=== PATIENT | female | born 1960 | race American Indian/Alaskan Native ===

== ENCOUNTER 2017-12-29 17:09 | Emergency (ER) | payer BC ==
[2017-12-29 18:06] LABS: Bacteria,Urine 1+ /HPF (Negative); Bilirubin,Urine NEG (Negative); Blood,Urine SM (Negative); Color,Urine Yellow (Yellow); Mucus,Urine FEW /HPF; Protein,Urine <15 mg/dL mg/dL (Negative); Urobilinogen,Urine < 2.0 mg/dL (<2.0)
[2017-12-29 18:11] LABS: Basophils # (Auto) 0.1 K/mm3 (0.0-0.1); Basophils % (Auto) 1.1 % (0.0-1.8); Eosinophils # (Auto) 0.5 K/mm3 (0.0-0.4); Eosinophils % (Auto) 10.3 % (0.0-4.3); Hemoglobin 13.4 gm/dl (10.1-14.3); Lymphocytes # (Auto) 2.1 K/mm3 (1.2-5.4); Lymphocytes % (Auto) 41.6 % (13.4-35.0); Mean Corpuscular HGB Conc 32 % (30-34); Mean Corpuscular Hemoglobin 31 pg (28-32); Mean Corpuscular Volume 96 fl (79-97); Monocytes # (Auto) 0.4 K/mm3 (0.0-0.8); Monocytes % (Auto) 8.3 % (0.0-7.3); Platelet Count 257 K/mm3 (140-440); Red Blood Count 4.38 M/mm3 (3.65-5.03); Red Cell Distribution Width 14.4 % (13.2-15.2)
[2017-12-29 18:26] LABS: Alanine Aminotransferase 10 units/L (7-56); Albumin 3.8 g/dL (3.9-5); BUN/Creatinine Ratio 10; Blood Urea Nitrogen 9 mg/dL (7-17); Hemolysis Index 48; Lipase 14 units/L (13-60)
[2017-12-29] MEDS ORDERED: ZOFRAN IV ONE (20:58)
[2017-12-29] MEDS ORDERED: NACL 0.9% 1000 ML 1,000 ML IV ONE (20:58)
[2017-12-29] MEDS ORDERED: CARAFATE PO ONE (20:58)
[2017-12-29] MEDS ORDERED: PEPCID IV ONE (20:58)
--- NOTE | 2017-12-29 20:59 | Emergency Department Report ---
ED General Adult HPI - General Chief complaint: Nausea/Vomiting/Diarrhea Stated complaint: VOMITING, BACK PAIN Time Seen by Provider: 12/29/17 20:51 Source: patient, RN notes reviewed Mode of arrival: Ambulatory Limitations: No Limitations - History of Present Illness Initial comments: This is a 57-year-old female who was previously unknown to this provider, she reports a past medical history of hypertension and high cholesterol, does not have a local primary care doctor. She presents to the ER with complaints of "I think I have food poisoning." She reports consuming a fast food hamburger over the weekend, and shortly thereafter developed some nausea, 1 episode of nonbloody, nonbilious emesis, and intermittent diarrhea. The past 24 hours she' s had one bowel movement. She hasn't thrown up in the past 24 hours. She also describes lower back pain. She also describes feeling tired and fatigued. Her pain is achy, it does not radiate anywhere, and it does not have exacerbating or relieving factors, with the exception of eating which appears to worsen her symptoms. -: Gradual Location: back Radiation: non-radiation Quality: aching Consistency: intermittent Improves with: rest Worsens with: eating Associated Symptoms: loss of appetite, malaise, nausea/vomiting, weakness. denies: confusion, chest pain, cough, diaphoresis, fever/chills, headaches, rash , seizure, shortness of breath, syncope - Related Data Previous Rx's Medication Instructions Recorded Last Taken Type Dicyclomine [Bentyl] 10 mg PO QID PRN #20 capsule 12/29/17 Unknown Rx Ondansetron [Zofran Odt] 4 mg PO Q8HR PRN #20 tab.rapdis 12/29/17 Unknown Rx Allergies Allergy/AdvReac Type Severity Reaction Status Date / Time No Known Allergies Allergy Unverified 12/29/17 17:26 ED Review of Systems ROS: Stated complaint: VOMITING, BACK PAIN Other details as noted in HPI Comment: All other systems reviewed and negative ED Past Medical Hx - Past Medical History Previous Medical History?: Yes Hx Hypertension: Yes Additional medical history: High cholesterol - Surgical History Past Surgical History?: Yes Additional Surgical History: C-neck - Social History Smoking Status: Current Every Day Smoker Substance Use Type: Alcohol, Non Opiate Pain, Other - Medications Home Medications: Home Medications Medication Instructions Recorded Confirmed Last Taken Type Dicyclomine [Bentyl] 10 mg PO QID PRN #20 capsule 12/29/17 Unknown Rx Ondansetron [Zofran Odt] 4 mg PO Q8HR PRN #20 tab.rapdis 12/29/17 Unknown Rx ED Physical Exam - General Limitations: No Limitations General appearance: alert, in no apparent distress - Head Head exam: Present: atraumatic, normocephalic - Eye Eye exam: Present: normal appearance, EOMI. Absent: nystagmus - ENT ENT exam: Present: normal exam, normal orophraynx, mucous membranes moist, normal external ear exam - Neck Neck exam: Present: normal inspection, full ROM - Respiratory Respiratory exam: Present: normal lung sounds bilaterally. Absent: respiratory distress - Cardiovascular Cardiovascular Exam: Present: regular rate, normal rhythm, normal heart sounds. Absent: systolic murmur, diastolic murmur, rubs, gallop - GI/Abdominal GI/Abdominal exam: Present: soft, tenderness, normal bowel sounds, other ( suprapubic and mild right lower quadrant tenderness, no rebound, guarding or peritoneal signs). Absent: distended, guarding, rebound, rigid, pulsatile mass - Extremities Exam Extremities exam: Present: normal inspection, full ROM, normal capillary refill. Absent: pedal edema, joint swelling, calf tenderness - Back Exam Back exam: Present: normal inspection, full ROM. Absent: tenderness, CVA tenderness (R), paraspinal tenderness, vertebral tenderness - Neurological Exam Neurological exam: Present: alert, oriented X3, CN II-XII intact, normal gait, other (Extraocular movements intact. Tongue midline. No facial droop. Facial sensation intact to light touch in the V1, V2, V3 distribution bilaterally. 5 and 5 strength in 4 extremities.. Sensation is intact to light touch in 4 extremities.). Absent: motor sensory deficit - Psychiatric Psychiatric exam: Present: normal affect, normal mood - Skin Skin exam: Present: warm, dry, intact, normal color. Absent: rash ED Course Vital Signs 12/29/17 17:26 Temperature 97.9 F Pulse Rate 97 H Respiratory 20 Rate Blood Pressure 151/99 O2 Sat by Pulse 97 Oximetry ED Medical Decision Making - Lab Data Result diagrams: 12/29/17 17:58 12/29/17 17:58 Vital Signs 03/26/18 17:26 Temperature 97.9 F Pulse Rate 97 H Respiratory 20 Rate Blood Pressure 151/99 O2 Sat by Pulse 97 Oximetry Lab Results 12/29/17 12/29/17 12/29/17 Range/Units 17:51 17:58 17:58 WBC 5.1 (4.5-11.0) K/mm3 RBC 4.38 (3.65-5.03) M/mm3 Hgb 13.4 (10.1-14.3) gm/dl Hct 42.0 (30.3-42.9) % MCV 96 (79-97) fl MCH 31 (28-32) pg MCHC 32 (30-34) % RDW 14.4 (13.2-15.2) % Plt Count 257 (140-440) K/mm3 Lymph % (Auto) 41.6 H (13.4-35.0) % [place] % (Auto) 8.3 H (0.0-7.3) % Eos % (Auto) 10.3 H (0.0-4.3) % Baso % (Auto) 1.1 (0.0-1.8) % Lymph # 2.1 (1.2-5.4) K/mm3 [place] # 0.4 (0.0-0.8) K/mm3 Eos # 0.5 H (0.0-0.4) K/mm3 Baso # 0.1 (0.0-0.1) K/mm3 Seg Neutrophils % 38.7 L (40.0-70.0) % Seg Neutrophils # 2.0 (1.8-7.7) K/mm3 Sodium 140 (137-145) mmol/L Potassium 4.3 (3.6-5.0) mmol/L Chloride 102.5 (98-107) mmol/L Carbon Dioxide 27 (22-30) mmol/L Anion Gap 15 mmol/L BUN 9 (7-17) mg/dL Creatinine 0.9 (0.7-1.2) mg/dL Estimated GFR > 60 ml/min BUN/Creatinine Ratio 10 % Glucose 95 (65-100) mg/dL Calcium 9.0 (8.4-10.2) mg/dL Total Bilirubin 0.70 (0.1-1.2) mg/dL AST 17 (5-40) units/L ALT 10 (7-56) units/L Alkaline Phosphatase 113 (35-129) units/L Total Protein 7.4 (6.3-8.2) g/dL Albumin 3.8 L (3.9-5) g/dL Albumin/Globulin Ratio 1.1 % Lipase 14 (13-60) units/L Urine Color Yellow (Yellow) Urine Turbidity Clear (Clear) Urine pH 5.0 (5.0-7.0) Ur Specific [place] 1.013 (1.003-1.030) Urine Protein <15 mg/dl (Negative) mg/dL Urine Glucose (UA) Neg (Negative) mg/dL Urine Ketones Neg (Negative) mg/dL Urine Blood Sm (Negative) Urine Nitrite Neg (Negative) Urine Bilirubin Neg (Negative) Urine Urobilinogen < 2.0 (<2.0) mg/dL Ur Leukocyte Esterase Neg (Negative) Urine WBC (Auto) 2.0 (0.0-6.0) /HPF Urine RBC (Auto) 3.0 (0.0-6.0) /HPF U Epithel Cells (Auto) < 1.0 (0-13.0) /HPF Urine Bacteria (Auto) 1+ (Negative) /HPF Urine Mucus Few /HPF - EKG Data -: EKG Interpreted by Vt - EKG Data When compared to previous EKG there are: previous EKG unavailable 12/29/17 22:55 Motion artifact, sinus bradycardia, 46 bpm, poor r wave progression, abnormal EKG, not consistent with STEMI - Radiology Data Radiology results: report reviewed, image reviewed Referring Physician: OMID HUGHES Patient Name: January NGUYEN Date of : 1960 Sex: Female Report Date: 2017-12-29 Report Status: Finalized Findings [facility] [address] [place] [address] Cat Scan Report Signed Patient: NGUYENJanuary MR#: [id number] : 1960 Acct:[id number] Age/Sex: 57 / F ADM Date: 12/29/17 Loc: ED Attending Dr: Ordering Physician: OMID HUGHES MD Date of Service: 12/29/17 Procedure(s): CT abdomen pelvis w con Accession Number(s): [id number] cc: OMID HUGHES MD FINAL REPORT PROCEDURE: CT ABDOMEN PELVIS W CON TECHNIQUE: Computerized axial tomography of the abdomen and pelvis was performed after the IV injection of iodinated nonionic contrast. HISTORY: abd pain COMPARISON: No prior studies are available for comparison. FINDINGS: Liver, spleen, pancreas and left adrenal gland are within normal limits. 1.3 x 1.9 centimeter mass is noted involving right adrenal. Bilateral kidneys demonstrate uniform enhancement without hydronephrosis. Urinary bladder is partially filled with normal outlines. Aorta is of normal caliber. There is no free fluid or free air. Gallbladder is unremarkable. Small bowel loops are within normal limits. Appendix is normal. Mild degree degenerative changes are noted involving the lumbar spine. IMPRESSION: 1.3 x 1.9 centimeter lesion involving the right adrenal. This may represent a benign versus a malignant lesion. This can be further evaluated using noncontrast CT or pre and post-contrast MRI. Otherwise no acute intra-abdominal or pelvic pathology. Transcribed By: [facility] Dictated By: JOHN NESBITT Electronically Authenticated By: JOHN NESBITT Signed Date/Time: 12/29/172225 DD/ 25 - Medical Decision Making Differential diagnosis, including but not limited to: Foodborne illness, ileus, enteritis, appendicitis, colitis Assessment and plan: 57-year-old female with nonspecific GI complaints, initial mild lower abdominal tenderness, laboratory studies unremarkable, patient medicated appropriately, she is tolerating orals and a CAT scan did not show any surgical disease. Her abdomen was soft on repeat exam, she'll be discharged with nonnarcotic pain medication, nausea medication, instructed to follow up with outpatient primary care doctor for right-sided adrenal incidental findings. Return precautions are reviewed. Critical care attestation.: If time is entered above; I have spent that time in minutes in the direct care of this critically ill patient, excluding procedure time. ED Disposition Clinical Impression: History of nausea and vomiting Disposition: DC-01 TO HOME OR SELFCARE Is pt being admited?: No Does the pt Need Aspirin: No Condition: Stable Instructions: Acute Nausea and Vomiting (ED), Food Poisoning (ED) Additional Instructions: Take the pain medication, nausea medication as needed/directed. Advance diet as tolerated and as we discussed. Pedialyte, Gatorade, apple juice mixed with water are all acceptable methods of fluid replacement. Advance diet gently, started with bread, rice, apples, toast. Avoid heavy, spicy foods. Follow up with the primary care doctor within the next month. CT scan demonstrated the following incidental findings on right-sided adrenal gland: IMPRESSION: 1.3 x 1.9 centimeter lesion involving the right adrenal. This may represent a benign versus a malignant lesion. This can be further evaluated using noncontrast CT or pre and post-contrast MRI. It is very important to follow-up with an outpatient primary care doctor for this incidental finding. Not following up as recommended may result in an undiagnosed tumor, cancer, malignancy. Return to the ER right away with new pain, worsened pain, migration of pain, fevers, chills, lethargy, irritability, projectile vomiting, change in mental status, confusion, inability to tolerate liquid feeds. Referrals: KYLE STEPHENSON MD [Primary Care Provider] - 3-5 Days SHIRLEY WILLIAMSON MD [Staff Physician] - 3-5 Days
[2017-12-29] MEDS ORDERED: BENTYL PO ONE (21:30)
--- NOTE | 2017-12-29 22:31 | Cat Scan Report ---
FINAL REPORT PROCEDURE: CT ABDOMEN PELVIS W CON TECHNIQUE: Computerized axial tomography of the abdomen and pelvis was performed after the IV injection of iodinated nonionic contrast. HISTORY: abd pain COMPARISON: No prior studies are available for comparison. FINDINGS: Liver, spleen, pancreas and left adrenal gland are within normal limits. 1.3 x 1.9 centimeter mass is noted involving right adrenal. Bilateral kidneys demonstrate uniform enhancement without hydronephrosis. Urinary bladder is partially filled with normal outlines. Aorta is of normal caliber. There is no free fluid or free air. Gallbladder is unremarkable. Small bowel loops are within normal limits. Appendix is normal. Mild degree degenerative changes are noted involving the lumbar spine. IMPRESSION: 1.3 x 1.9 centimeter lesion involving the right adrenal. This may represent a benign versus a malignant lesion. This can be further evaluated using noncontrast CT or pre and post-contrast MRI. Otherwise no acute intra-abdominal or pelvic pathology.
[2017-12-29 23:06] VITALS: BP 146/88
== END 2017-12-29 23:06 | disposition home or self-care (01) ==
LOC: ED 17:09
DX: R11.2 Nausea with vomiting, unspecified (principal); R19.7 Diarrhea, unspecified; I10 Essential (primary) hypertension; E78.00 Pure hypercholesterolemia, unspecified; F17.200 Nicotine dependence, unspecified, uncomplicated
CPT/HCPCS: 36415; 74177; 80053; 81001; 83690; 85025; 93005; 93010; 96361; 96374; 96375; 99284; J2405; J7030; Q9967